=== PATIENT | male | born 1990 | race Caucasian/White ===

== ENCOUNTER → 2017-07-27 | Outpatient (CLI) | payer BC ==
--- NOTE | 2017-07-27 09:11 | DIAGNOSTIC IMAGING REPORT ---
TESTICULAR ULTRASOUND CLINICAL HISTORY: Left testicular neoplasm COMPARISON STUDY: No previous studies for comparison. FINDINGS: The right testis measures 50 x 24 x 32 mm. The left testis measures 48 x 24 x 27 mm. There is no evidence of testicular torsion. No intratesticular masses are visualized in the right. On the left, there is a 3 mm cyst of the tunica. There is a 2 mm epididymal head cyst. There is a 2 mm echogenic likely calcific lesion within the left testis medially. IMPRESSION: 1. No evidence of testicular torsion 2. 2 mm echogenic likely calcific lesion within the left testis medially 3. 3 mm left tunical cyst Electronically signed by: Minh Landrum M.D. 07/27/2017 9:09 AM Dictated Date/Time: 07/27/2017 9:06 AM
== END | disposition home or self-care (01) ==
LOC: C.ULTR 08:31
PROVIDERS: ATTEND Family Medicine
DX: D40.12 Neoplasm of uncertain behavior of left testis (principal)